=== PATIENT | male | born 1965 | race Caucasian/White ===

== ENCOUNTER 2016-08-05 09:29 | Day surgery (SDCO) | payer OTHER ==
[2016-08-05 09:59] LABS: BASOPHIL 0.2 % (0-2); EOSINOPHIL 0 % (0-5); HCT 44.5 % (42.0-52.0); LYMPHOCYTE 14.3 % (15-48); MCH 30.6 pg (25.0-31.0); MCHC 33.7 g/dL (32.0-36.0); MCV 90.8 fL (78.0-100.0); MONOCYTE 10.8 % (0-12); MPV 10.3 fL (6.0-9.5); NEUTROPHIL 74.7 % (41-80); PLT 204 K/uL (150-400); RDW 13.4 % (11.5-14.0)
[2016-08-05 10:07] LABS: ALBUMIN 4.5 g/dL (3.5-5.0); BILIRUBIN - TOTAL 1.1 mg/dL (0.1-1.0); CREATININE 0.8 mg/dL (0.7-1.2); GLOBULIN (CALCULATION) 2.8 g/dL (2.2-4.2); LACTIC ACID 0.9 mmol/L (0.5-2.2); MAGNESIUM 1.86 mg/dL (1.40-2.10); TOTAL PROTEIN 7.3 g/dL (6.4-8.3)
[2016-08-05 10:09] LABS: MYOGLOBIN 31 ng/mL (26-65); PRO-BNP 85 pg/mL (0-125); TROPONIN T < 0.010 ng/mL
[2016-08-05 10:12] LABS: PTT 31.6 SECONDS (23.2-31.4)
[2016-08-05 10:13] LABS: D-DIMER 0.8 ug/mLFEU (0.00-0.41)
[2016-08-05 10:18] LABS: BILIRUBIN 1+ mg/dL (NEGATIVE); BLOOD 2+ Ery/uL (NEGATIVE); CLARITY CLEAR (CLEAR); COLOR ORANGE (YELLOW); GLUCOSE (U) NORMAL (NORMAL); KETONE (U) 1+ (SMALL) mg/dL (NEGATIVE); LEUKOCYTES NEGATIVE Leu/uL (NEGATIVE); NITRITE NEGATIVE (NEGATIVE); PROTEIN 2+ mg/dL (NEGATIVE); SPECIFIC GRAVITY >=1.030 (1.001-1.030); pH 5.5 (5.0-9.0)
[2016-08-05 10:22] LABS: BACTERIA TRACE; MUCOUS LARGE; SQUAMOUS EPITHELIAL CELLS RARE; URINARY WBC RARE
[2016-08-05 10:26] LABS: INR 1.21 (0.9-1.2); PROTHROMBIN TIME 14.9 SECONDS (11.7-14.0)
[2016-08-05 15:38] LABS: AMPHETAMINES NEGATIVE (NEGATIVE); BARBITURATES NEGATIVE (NEGATIVE); BENZODIAZEPINES NEGATIVE (NEGATIVE); COCAINE NEGATIVE (NEGATIVE); MARIJUANA (THC) NEGATIVE (NEGATIVE); METHADONE NEGATIVE (NEGATIVE); TRICYCLIC ANTIDEPRESSANT NEGATIVE (NEGATIVE)
[2016-08-05 16:44] LABS: TROPONIN T < 0.010 ng/mL
[2016-08-05 22:47] LABS: CKMB < 1.00 ng/mL (0.97-4.94); TROPONIN T < 0.010 ng/mL
[2016-08-06 04:00] LABS: HCT 43.7 % (42.0-52.0); HGB 14.7 g/dl (13.2-18.0); MCH 30.6 pg (25.0-31.0); MCHC 33.6 g/dL (32.0-36.0); MCV 90.9 fL (78.0-100.0); MPV 10.6 fL (6.0-9.5); RBC 4.81 M/uL (4.70-6.00); RDW 13.5 % (11.5-14.0); WBC 11.3 K/uL (4.0-10.5)
[2016-08-06 04:18] LABS: CREATININE 0.7 mg/dL (0.7-1.2); POTASSIUM 4.1 mmol/L (3.5-5.1)
== END 2016-08-06 15:45 | disposition home or self-care (01) ==
LOC: FER 09:29 → FTCU 13:33
PROVIDERS: Emergency Medicine; ADMIT Internal Medicine Nephrology
DX: R07.89 Other chest pain (principal); G47.33 Obstructive sleep apnea (adult) (pediatric); N28.89 Other specified disorders of kidney and ureter; R59.9 Enlarged lymph nodes, unspecified; F17.210 Nicotine dependence, cigarettes, uncomplicated; M19.90 Unspecified osteoarthritis, unspecified site; I45.10 Unspecified right bundle-branch block; Z87.442 Personal history of urinary calculi; Z90.49 Acquired absence of other specified parts of digestive tract; Z83.6 Family history of other diseases of the respiratory system; Z82.49 Family history of ischemic heart disease and other diseases of the circulatory system
CPT/HCPCS: 36415; 71010; 71275; 74020; 80048; 80053; 80061; 80305; 81001; 82550; 82553; 83605; 83690; 83735; 83874; 83880; 84484; 85025; 85379; 85610; 85730; 87088; 93005; 94010; G0378; G0480; J2270; Q9967